=== PATIENT | female | born 1980 | race American Indian/Alaskan Native ===

== ENCOUNTER 2021-01-15 07:29 | Inpatient (IN) | payer SELFPAY ==
[2021-01-15] MEDS ORDERED: LORazepam 2 MG/ML VIAL IV ONE (08:43)
--- NOTE | 2021-01-15 08:48 | Emergency Department Report ---
ED Shortness of Breath HPI - General Chief Complaint: Dyspnea/Respdistress Stated Complaint: SOB, CHEST PAIN, EARS Time Seen by Provider: 01/15/21 08:35 Source: patient Mode of arrival: Ambulatory Limitations: No Limitations - History of Present Illness Initial Comments: 40-year-old female, history of anxiety, presents to ED with difficulty breathing. Patient states her symptoms started last night while she was smoking crack. She states she became sweaty, short of breath, felt like she is going to pass out. Patient also reports that she has had cough x1 week. Reports chest pain secondary to coughing so much. Patient states she has pain across the entire anterior chest. States it is worse with inspiration, feels like throbbing. Patient states she was tested for Covid last week and it was negative. Patient states she received the 1st dose of her Pfizer vaccine a couple of months ago. Patient never returned for her 2nd dose. She reports subjective fever and chills. O2 sats 85% on room air at triage. MD Complaint: shortness of breath -: Last night Severity: moderate Consistency: constant Improves With: nothing Worsens With: nothing Associated Symptoms: chest pain, fever, cough, diaphoresis Treatments Prior to Arrival: none - Related Data Home Oxygen Therapy: No Home Medications Medication Instructions Recorded Confirmed Last Taken No Known Home Medications [No 01/16/21 01/16/21 Unknown Reported Home Medications] Allergies Allergy/AdvReac Type Severity Reaction Status Date / Time No Known Allergies Allergy Verified 01/15/21 11:56 ED Review of Systems ROS: Stated complaint: SOB, CHEST PAIN, EARS Other details as noted in HPI Comment: All other systems reviewed and negative Constitutional: chills, fever Respiratory: cough, shortness of breath Cardiovascular: chest pain ED Past Medical Hx - Medications Home Medications: Home Medications Medication Instructions Recorded Confirmed Last Taken Type No Known Home Medications [No 01/16/21 01/16/21 Unknown History Reported Home Medications] ED Physical Exam - General Limitations: No Limitations General appearance: alert, obese - Head Head exam: Present: atraumatic, normocephalic - Eye Eye exam: Present: normal appearance, EOMI - ENT ENT exam: Present: mucous membranes moist - Neck Neck exam: Present: normal inspection - Respiratory Respiratory exam: Present: normal lung sounds bilaterally. Absent: respiratory distress - Cardiovascular Cardiovascular Exam: Present: normal rhythm, tachycardia - GI/Abdominal GI/Abdominal exam: Present: soft. Absent: distended, tenderness - Extremities Exam Extremities exam: Present: normal inspection. Absent: pedal edema, calf tenderness - Neurological Exam Neurological exam: Present: alert, oriented X3 - Psychiatric Psychiatric exam: Present: anxious - Skin Skin exam: Present: warm, dry, intact, normal color ED Course Vital Signs 01/15/21 01/15/21 01/15/21 07:51 11:19 11:31 Temperature 98.2 F Pulse Rate 125 H 118 H 115 H Respiratory 18 12 22 Rate Blood Pressure 128/83 Blood Pressure 125/65 [Right] O2 Sat by Pulse 85 93 97 Oximetry 01/15/21 01/15/21 01/15/21 11:45 12:01 12:15 Temperature Pulse Rate 114 H 112 H 109 H Respiratory 40 H 44 H 33 H Rate Blood Pressure 128/83 128/83 128/83 Blood Pressure [Right] O2 Sat by Pulse 95 94 96 Oximetry 01/15/21 01/15/21 01/15/21 13:15 13:31 13:45 Temperature Pulse Rate 114 H 106 H 106 H Respiratory 25 H 40 H 35 H Rate Blood Pressure 127/86 138/88 124/80 Blood Pressure [Right] O2 Sat by Pulse 96 99 99 Oximetry 01/15/21 01/15/21 01/15/21 14:01 14:15 14:31 Temperature Pulse Rate 105 H 102 H 100 H Respiratory 22 35 H 36 H Rate Blood Pressure 114/80 119/77 125/79 Blood Pressure [Right] O2 Sat by Pulse 98 98 98 Oximetry 01/15/21 01/15/21 01/15/21 14:46 15:01 15:15 Temperature Pulse Rate 100 H 99 H 93 H Respiratory 34 H 37 H 20 Rate Blood Pressure 125/79 141/89 Blood Pressure [Right] O2 Sat by Pulse 98 98 98 Oximetry 01/15/21 01/15/21 01/15/21 15:31 15:45 16:01 Temperature Pulse Rate 99 H 100 H 100 H Respiratory 25 H 21 29 H Rate Blood Pressure 141/89 141/89 141/89 Blood Pressure [Right] O2 Sat by Pulse 97 97 98 Oximetry 01/15/21 01/15/21 01/15/21 16:15 16:31 16:45 Temperature Pulse Rate 97 H 102 H 101 H Respiratory 17 20 23 Rate Blood Pressure 141/89 141/89 141/89 Blood Pressure [Right] O2 Sat by Pulse 97 98 97 Oximetry 01/15/21 01/15/21 01/15/21 17:01 17:15 17:31 Temperature Pulse Rate 103 H 100 H 100 H Respiratory 16 24 20 Rate Blood Pressure 141/89 141/89 141/89 Blood Pressure [Right] O2 Sat by Pulse 92 98 99 Oximetry 01/15/21 01/15/21 01/15/21 17:45 18:01 18:15 Temperature Pulse Rate 98 H 102 H 117 H Respiratory 21 19 32 H Rate Blood Pressure 141/89 141/89 141/89 Blood Pressure [Right] O2 Sat by Pulse 98 96 88 Oximetry 01/15/21 01/15/21 01/15/21 18:31 18:45 19:01 Temperature Pulse Rate 108 H 104 H Respiratory 17 21 Rate Blood Pressure 146/124 146/124 133/88 Blood Pressure [Right] O2 Sat by Pulse 82 L 85 99 Oximetry 01/15/21 01/15/21 01/15/21 19:15 19:31 19:45 Temperature Pulse Rate 102 H 99 H 103 H Respiratory 19 43 H 36 H Rate Blood Pressure 139/93 139/93 139/93 Blood Pressure [Right] O2 Sat by Pulse 89 98 95 Oximetry 01/15/21 01/15/21 01/15/21 20:01 20:15 20:31 Temperature Pulse Rate 99 H 99 H 102 H Respiratory 14 14 24 Rate Blood Pressure 139/93 139/93 139/93 Blood Pressure [Right] O2 Sat by Pulse 92 97 91 Oximetry 01/15/21 01/15/21 01/15/21 20:45 21:01 21:06 Temperature Pulse Rate 122 H 97 H Respiratory 16 27 H Rate Blood Pressure 139/93 139/93 Blood Pressure [Right] O2 Sat by Pulse 69 L 97 97 Oximetry 01/15/21 01/15/21 01/15/21 21:15 21:31 21:45 Temperature Pulse Rate 101 H 105 H 97 H Respiratory 26 H 37 H 25 H Rate Blood Pressure 139/93 145/89 146/82 Blood Pressure [Right] O2 Sat by Pulse 98 87 96 Oximetry 01/15/21 01/15/21 01/15/21 22:01 22:15 22:17 Temperature Pulse Rate 101 H 100 H 99 H Respiratory 22 46 H 24 Rate Blood Pressure 139/101 152/98 152/98 Blood Pressure [Right] O2 Sat by Pulse 95 95 98 Oximetry 01/15/21 22:23 Temperature Pulse Rate 99 H Respiratory 34 H Rate Blood Pressure 147/95 Blood Pressure [Right] O2 Sat by Pulse 97 Oximetry ED Medical Decision Making - Lab Data Result diagrams: 01/16/21 07:40 01/16/21 07:06 - EKG Data -: EKG Interpreted by Tn EKG shows normal: sinus rhythm, axis, intervals, QRS complexes, ST-T waves Rate: tachycardia (rate 113) - EKG Data Interpretation: no acute changes - Radiology Data Radiology results: report reviewed, image reviewed - Medical Decision Making 40-year-old female presents to ED with shortness of breath. O2 sats 85% on room air. Chest x-ray impression is pulmonary edema versus pneumonia. Patient has elevated WBCs of 19. She is afebrile. BNP is within normal limits. Patient currently on 6 L O2 via nasal cannula with O2 sats of 95%. Possible flash pulmonary edema due to cocaine use, so IV Lasix given. Possible Covid, so Covid PCR and markers sent. Blood cultures ordered, patient given Decadron, Rocephin, azithromycin. Patient admitted to hospitalist, Dr. Gambino. - Differential Diagnosis Pneumonia, COVID-19, pulmonary edema Critical Care Time: Yes Critical care time in (mins) excluding proc time.: 35 Critical care attestation.: If time is entered above; I have spent that time in minutes in the direct care of this critically ill patient, excluding procedure time. Critical Care Time: 35 min ED Disposition Clinical Impression: Suspected COVID-19 virus infection, Acute respiratory failure with hypoxia, Cocaine abuse, Pneumonia, Hypokalemia, Sepsis, Pulmonary edema, Amphetamine abuse Disposition: ADMITTED INPATIENT Is pt being admited?: Yes Condition: Stable Time of Disposition: 10:28
--- NOTE | 2021-01-15 09:12 | XRay Report ---
CHEST 1 VIEW INDICATION: SOB. COMPARISON: None FINDINGS: Support devices: None. Heart: Within normal limits. Lungs/Pleura: Moderate bilateral perihilar infiltrates are identified most consistent with central pu lmonary edema. Bilateral pneumonia could be considered. No pleural effusion or pneumothorax. Additional findings: None. IMPRESSION: Bilateral perihilar infiltrates as described. Signer Name: Srinivas Koroma Jr, MD Signed: 01/15/2021 9:07 AM Workstation Name: [id number]
[2021-01-15] MEDS ORDERED: AZITHROMYCIN 250 MG TAB PO ONE (09:35)
[2021-01-15] MEDS ORDERED: cefTRIAXone/NS 1 GM/50 ML 1 GM/50 ML BAG IV ONE (09:35)
[2021-01-15] MEDS ORDERED: FUROSEMIDE 40 MG/4 ML INJ IV ONE (09:35)
[2021-01-15] MEDS ORDERED: DEXAMETHASONE 4 MG TAB PO ONE (09:35)
[2021-01-15 09:47] LABS: Basophils % (Auto) 0.2 % (0.0-1.8); Hematocrit 41.8 % (30.3-42.9); Hemoglobin 13.6 gm/dl (10.1-14.3); Mean Corpuscular HGB Conc 33 % (30-34); Mean Corpuscular Volume 83 fl (79-97); Monocytes # (Auto) 0.9 K/mm3 (0.0-0.8); Monocytes % (Auto) 4.9 % (0.0-7.3); Platelet Count 315 K/mm3 (140-440); Red Blood Count 5.05 M/mm3 (3.65-5.03); Red Cell Distribution Width 17.1 % (13.2-15.2)
[2021-01-15 10:10] LABS: INR 1.03 (0.87-1.13)
[2021-01-15 10:11] LABS: Partial Thromboplastin Time 30.6 Sec. (24.2-36.6)
[2021-01-15 10:20] LABS: Alanine Aminotransferase 44 units/L (7-56); Albumin 3.8 g/dL (3.9-5); BUN/Creatinine Ratio 7; Blood Urea Nitrogen 6 mg/dL (7-17); Calcium 8.8 mg/dL (8.4-10.2); Hemolysis Index 9
[2021-01-15] MEDS ORDERED: POTASSIUM CHLORIDE ER 20 MEQ TAB PO ONE (10:31)
[2021-01-15 10:45] LABS: Bilirubin,Direct < 0.2 mg/dL (0-0.2)
[2021-01-15 10:58] LABS: Bilirubin,Urine NEG (Negative); Blood,Urine SM (Negative); Color,Urine Straw (Yellow); Protein,Urine <15 mg/dL mg/dL (Negative); Urobilinogen,Urine < 2.0 mg/dL (<2.0); WBC,Urine < 1.0 /HPF (0.0-6.0)
[2021-01-15 11:09] LABS: Benzodiazepines Screen,Urine Negative; Methadone Screen,Urine Negative; Opiate Screen,Urine Negative
--- NOTE | 2021-01-15 11:23 | History and Physical Report ---
History of Present Illness Date of examination: 01/15/21 Date of admission: 01/15/2021 Chief complaint: Shortness of breath History of present illness: HPI: 33-year-old female past medical history of anxiety and cocaine use presenting to our facility with complaint of shortness of breath. Patient states that she has had a cough for approximately 1 week with associated pleuritic chest pain every time she coughs. Cough is associated with blood-tinged sputum. She was tested at the time for Covid and was found to be negative. She has received her first dose of the [employer] Covid vaccine. She states that her symptoms worsened after yesterday she was smoking crack cocaine. She states that immediately after she became diaphoretic and short of breath. Remainder of ROS negative except for stated above ED Course: Azithromycin IV, ceftriaxone IV, Decadron IV, Lasix IV, K. Dur p.o. PMHx: Anxiety Crack cocaine abuse PSHx: x3 FHx: Reviewed noncontributory SHx: Tobacco use-1 pack/day ETOH Use-admits Recreational Drug Use-crack cocaine PCP-denies having a primary Family, has Medications and Allergies Allergies Allergy/AdvReac Type Severity Reaction Status Date / Time No Known Allergies Allergy Verified 01/15/21 11:56 Review of Systems All systems: negative Constitutional: sweats Respiratory: cough, cough with sputum, shortness of breath Exam - Physical Exam Narrative exam: Physical Exam: Constitutional: Alert, cooperative. No acute distress, elevated BMI, drowsy Head, Ears, Nose: Normocephalic, atraumatic. External ears, nose normal Eyes: Conjunctivae/corneas clear. No icterus. No ptosis. Neck: Supple, no meningeal signs Oral: dentition fair, no thrush Cardiovascular: S1, S2 normal. Respiratory: Good air entry, clear to auscultation bilaterally GI: Soft, non-tender; bowel sounds normal. No peritoneal signs. Musculoskeletal: No pedal edema, no cyanosis. Skin: No rash or abscess, see nursing assessment for full skin exam Hem/Lymphatic: No palpable cervical or supraclavicular nodes. No lymphangitis Psych: Mood ok. Affect normal Neurological: Awake, alert, oriented. No gross abnormality - Constitutional Vitals: Temp Pulse Resp BP Pulse Ox 98.2 F 125 H 18 125/65 85 01/15/21 07:51 01/15/21 07:51 01/15/21 07:51 01/15/21 07:51 01/15/21 07:51 HEART Score - HEART Score Troponin: Troponin T < 0.010 ng/mL (0.00-0.029) 01/15/21 08:57 Results - Labs CBC & Chem 7: 01/15/21 08:57 01/15/21 15:31 Labs: Laboratory Last Values WBC 19.3 K/mm3 (4.5-11.0) H 01/15/21 08:57 RBC 5.05 M/mm3 (3.65-5.03) H 01/15/21 08:57 Hgb 13.6 gm/dl (10.1-14.3) 01/15/21 08:57 Hct 41.8 % (30.3-42.9) 01/15/21 08:57 MCV 83 fl (79-97) 01/15/21 08:57 MCH 27 pg (28-32) L 01/15/21 08:57 MCHC 33 % (30-34) 01/15/21 08:57 RDW 17.1 % (13.2-15.2) H 01/15/21 08:57 Plt Count 315 K/mm3 (140-440) 01/15/21 08:57 Lymph % (Auto) 5.0 % (13.4-35.0) L 01/15/21 08:57 [place] % (Auto) 4.9 % (0.0-7.3) 01/15/21 08:57 Eos % (Auto) 0.0 % (0.0-4.3) 01/15/21 08:57 Baso % (Auto) 0.2 % (0.0-1.8) 01/15/21 08:57 Lymph # (Auto) 1.0 K/mm3 (1.2-5.4) L 01/15/21 08:57 [place] # (Auto) 0.9 K/mm3 (0.0-0.8) H 01/15/21 08:57 Eos # (Auto) 0.0 K/mm3 (0.0-0.4) 01/15/21 08:57 Baso # (Auto) 0.0 K/mm3 (0.0-0.1) 01/15/21 08:57 Seg Neutrophils % 89.9 % (40.0-70.0) H 01/15/21 08:57 Seg Neutrophils # 17.4 K/mm3 (1.8-7.7) H 01/15/21 08:57 PT 14.0 Sec. (12.2-14.9) 01/15/21 08:57 INR 1.03 (0.87-1.13) 01/15/21 08:57 APTT 30.6 Sec. (24.2-36.6) 01/15/21 08:57 D-Dimer 1434.01 ng/mlDDU (0-234) H 01/15/21 08:57 Sodium 132 mmol/L (137-145) L 01/15/21 08:57 Potassium 3.0 mmol/L (3.6-5.0) L 01/15/21 08:57 Chloride 95.0 mmol/L (98-107) L 01/15/21 08:57 Carbon Dioxide 24 mmol/L (22-30) 01/15/21 08:57 Anion Gap 16 mmol/L 01/15/21 08:57 BUN 6 mg/dL (7-17) L 01/15/21 08:57 Creatinine 0.9 mg/dL (0.6-1.2) 01/15/21 08:57 Estimated GFR > 60 ml/min 01/15/21 08:57 BUN/Creatinine Ratio 7 % 01/15/21 08:57 Glucose 135 mg/dL (65-100) H 01/15/21 08:57 Lactic Acid 2.00 mmol/L (0.7-2.0) 01/15/21 10:12 Calcium 8.8 mg/dL (8.4-10.2) 01/15/21 08:57 Ferritin 167.8 ng/mL (10.0-200.0) 01/15/21 10:12 Total Bilirubin 0.50 mg/dL (0.1-1.2) 01/15/21 08:57 Direct Bilirubin < 0.2 mg/dL (0-0.2) 01/15/21 08:57 Indirect Bilirubin 0.3 mg/dL 01/15/21 08:57 AST 57 units/L (5-40) H 01/15/21 08:57 ALT 44 units/L (7-56) 01/15/21 08:57 Alkaline Phosphatase 89 units/L (35-129) 01/15/21 08:57 Troponin T < 0.010 ng/mL (0.00-0.029) 01/15/21 08:57 NT-Pro-B Natriuret Pep 52.39 pg/mL (0-450) 01/15/21 08:57 Total Protein 8.0 g/dL (6.3-8.2) 01/15/21 08:57 Albumin 3.8 g/dL (3.9-5) L 01/15/21 08:57 Albumin/Globulin Ratio 0.9 % 01/15/21 08:57 HCG, Qual Negative (Negative) 01/15/21 08:57 Urine Color Straw (Yellow) 01/15/21 Unknown Urine Turbidity Clear (Clear) 01/15/21 Unknown Urine pH 6.0 (5.0-7.0) 01/15/21 Unknown Ur Specific [place] 1.004 (1.003-1.030) 01/15/21 Unknown Urine Protein <15 mg/dl mg/dL (Negative) 01/15/21 Unknown Urine Glucose (UA) Neg mg/dL (Negative) 01/15/21 Unknown Urine Ketones Neg mg/dL (Negative) 01/15/21 Unknown Urine Blood Sm (Negative) 01/15/21 Unknown Urine Nitrite Neg (Negative) 01/15/21 Unknown Urine Bilirubin Neg (Negative) 01/15/21 Unknown Urine Urobilinogen < 2.0 mg/dL (<2.0) 01/15/21 Unknown Ur Leukocyte Esterase Neg (Negative) 01/15/21 Unknown Urine WBC (Auto) < 1.0 /HPF (0.0-6.0) 01/15/21 Unknown Urine RBC (Auto) 2.0 /HPF (0.0-6.0) 01/15/21 Unknown U Epithel Cells (Auto) 2.0 /HPF (0-13.0) 01/15/21 Unknown Urine Opiates Screen Negative 01/15/21 Unknown Urine Methadone Screen Negative 01/15/21 Unknown Ur Barbiturates Screen Negative 01/15/21 Unknown Ur Phencyclidine Scrn Negative 01/15/21 Unknown U Benzodiazepines Scrn Negative 01/15/21 Unknown Plasma/Serum Alcohol < 0.01 % (0-0.07) 01/15/21 08:57 Assessment and Plan Assessment and plan: 1. acute hypoxic respiratory failure Etiology high suspicion for Covid pneumonia. "Crack lung" also on differential -Currently on 3 L nasal cannula, wean as tolerated As needed albuterol inhaler -Chest x-ray demonstrates findings consistent with pulmonary edema CTA chest: Negative for PE, multifocal patchy groundglass opacities Pulmonology consulted 2. SARS-CoV-2 pneumonia Covid 19 RT-PCR positive Empiric antibiotic with azithromycin V/Rocephin IV, de-escalate if procalcitonin not elevated Decadron 10 mg IV daily Remdesivir x5 days ordered Lovenox 40 mg subcu daily Infectious disease consulted 3. Sepsis Leukocytosis, tachycardia, tachypnea Management as above Blood culture x2 ordered Sputum culture ordered 4. Transaminitis Mild elevation AST Monitor on hepatic panel 5. Hyponatremia Noted to be low Monitor on BMP 6. Hypokalemia Noted to be low on admission, replaced with K-Dur Follow-up on a.m. BMP 7. Drug abuse -Has been to drug rehab before Admitted to correct cocaine use just prior to admission and in the days leading up to admission UDS positive for amphetamines, THC, cocaine -Counseled on recreational drug abstinence and the detrimental effect of recreational drug use on health. 8. Nicotine abuse 1 pack/day smoking history since age 19 Counseled on smoking cessation, 10+ minutes - Patient Problems (1) Hyponatremia Current Visit: Yes Status: Acute (2) Transaminitis Current Visit: Yes Status: Acute (3) Acute respiratory failure with hypoxia Current Visit: Yes Status: Acute (4) Cocaine abuse Current Visit: Yes Status: Acute (5) Hypokalemia Current Visit: Yes Status: Acute (6) Pneumonia Current Visit: Yes Status: Acute (7) Sepsis Current Visit: Yes Status: Acute (8) Suspected COVID-19 virus infection Current Visit: Yes Status: Acute
[2021-01-15] MEDS ORDERED: cefTRIAXone/NS 1 GM/50 ML 1 GM/50 ML BAG IV SCH (12:00)
[2021-01-15] MEDS ORDERED: AZITHROMYCIN/NS 500 MG/250 ML 500 MG/250 ML BAG IV SCH (12:00)
[2021-01-15 12:12] LABS: C-Reactive Protein 14.4 mg/dL (0.00-1.30)
[2021-01-15 12:14] LABS: Amphetamine Screen,Urine Positive; Cannabinoid Screen,Urine Positive; Cocaine Screen,Urine Positive
[2021-01-15] MEDS: ACETAMINOPHEN 325 MG TAB PO PRN (12:35)
[2021-01-15] MEDS: ONDANSETRON 4 MG/2 ML INJ IV PRN (12:35)
--- NOTE | 2021-01-15 13:21 | Cat Scan Report ---
CTA CHEST WITH IV CONTRAST INDICATION: pneumonitis 100 ml omni 350 . TECHNIQUE: Axial CT images were obtained through the chest after injection of IV contrast. 3 plane MIP reconstru ctions were produced. All CT scans at this location are performed using CT dose reduction for ALARA b y means of automated exposure control. COMPARISON: None available. FINDINGS: Pulmonary Arteries: No pulmonary emboli. Thoracic Aorta: No acute abnormality. Heart: Normal. Lungs: There are extensive confluent predominantly perihilar groundglass opacities bilaterally. Pleura: No pleural effusion. No pneumothorax. Lymph Nodes: No significant adenopathy. Additional Findings: None. Upper Abdomen: No acute findings. Skeletal Structures: No significant osseous abnormality. IMPRESSION: 1. No CT evidence for pulmonary embolism. 2. Extensive confluent predominantly perihilar groundglass opacities consistent with bilateral pneumo javon. Given the perihilar predominance, cardiogenic/noncardiogenic pulmonary edema could have this avila earance. Signer Name: Jerome Aleman MD Signed: 01/15/2021 1:16 PM Workstation Name: [id number]
[2021-01-15] MEDS: ENOXAPARIN 40 MG/0.4 ML INJ SUB-Q SCH (13:28)
[2021-01-15] MEDS: oxyCODONE /ACETAMINOPHEN 5-325MG TAB PO PRN ×2 (13:28→20:13)
[2021-01-15] MEDS ORDERED: REMDESIVIR 200 MG in SODIUM CHLORIDE 0.9% 250ML 250 ML IV ONE (16:00)
[2021-01-15 16:08] LABS: Alanine Aminotransferase 42 units/L (7-56); Albumin 3.7 g/dL (3.9-5); Blood Urea Nitrogen 7 mg/dL (7-17); Calcium 8.9 mg/dL (8.4-10.2); Hemolysis Index 8
[2021-01-15 16:35] LABS: BUN/Creatinine Ratio 10
[2021-01-15] MEDS: SODIUM CHLORIDE 0.9% 50 ML IVPB IV SCH (23:09)
[2021-01-16] MEDS: oxyCODONE /ACETAMINOPHEN 5-325MG TAB PO PRN (07:10)
--- NOTE | 2021-01-16 07:46 | Consultation ---
History of Present Illness - Reason for Consult Consult date: 01/16/21 COVID - History of Present Illness 30-year-old female with history of left-sided pain, polysubstance abuse, anxiety, admitted on 01/15/2021 secondary to 1-week history of generalized malaise, cough, pleuritic chest pain and shortness of breath. Patient reports cough has been with sputum. Symptoms worsen the day before admission after she smoke cocaine. Patient was tested for COVID-19 as an outpatient and was negative. Patient received the first dose of COVID-19 Pfizer recently. Patient admits she uses cocaine, alcohol and tobacco. On arrival, temperature 98.2, HR 125, RR 18, O2 sat 85%, BP 125/65. Initial WBC 19.3. D-dimer 1434. CRP 14. Ferritin 167. Urinalysis negative. AST 48. Procalcitonin 1.6. Urine drug screen positive for amphetamines, cocaine and marijuana. CTA chest shows extensive confluent perihilar groundglass opacities. Blood culture no growth today. Review of Systems: reviewed ED and H&P notes. Review of system deferred to minimize COVID-19 transmission. Medications and Allergies Allergies Allergy/AdvReac Type Severity Reaction Status Date / Time No Known Allergies Allergy Verified 01/15/21 11:56 Active Meds: Active Medications Acetaminophen (Acetaminophen 325 Mg Tab) 650 mg PO Q4H PRN PRN Reason: Pain MILD(1-3)/Fever >100.5/LEUNG Last Admin: 01/15/21 12:35 Dose: 650 mg Documented by: Dexamethasone (Dexamethasone 20 Mg/5 Ml Vial) 10 mg IV DAILY [facility] Stop: 01/26/21 09:59 Enoxaparin Sodium (Enoxaparin 40 Mg/0.4 Ml Inj) 40 mg SUB-Q QDAY RODNEY Last Admin: 01/15/21 13:28 Dose: 40 mg Documented by: Ceftriaxone Sodium (Rocephin/Ns 1 Gm/50 Ml) 1 gm in 50 mls @ 100 mls/hr IV Q24H RODNEY; Protocol Last Admin: 01/15/21 12:24 Dose: Not Given Documented by: Azithromycin (Zithromax/Ns) 500 mg in 250 mls @ 250 mls/hr IV 1000 RODNEY REMDESIVIR 100 mg/ Sodium (Chloride) 250 mls @ 500 mls/hr IV Q24HR@2100 [facility] Stop: 01/19/21 21:29 Ondansetron HCl (Ondansetron 4 Mg/2 Ml Inj) 4 mg IV Q8H PRN PRN Reason: Nausea And Vomiting Last Admin: 01/15/21 12:35 Dose: 4 mg Documented by: Potassium Chloride (Potassium Chloride Er 20 Meq Tab) 40 meq PO QDAY [facility] Sodium Chloride (Sodium Chloride 0.9% 10 Ml Flush Syringe) 10 ml IV BID [facility] Last Admin: 01/15/21 23:09 Dose: 10 ml Documented by: Sodium Chloride (Sodium Chloride 0.9% 10 Ml Flush Syringe) 10 ml IV PRN PRN PRN Reason: LINE FLUSH Sodium Chloride (Sodium Chloride 0.9% 50 Ml Ivpb) 50 ml IV Q24HR@2100 [facility] Stop: 01/19/21 21:01 Last Admin: 01/15/21 23:09 Dose: Not Given Documented by: Physical Examination - Physical Exam Narrative exam: Physical exam deferred to minimize COVID-19 transmission during pandemic. - Constitutional Vitals: Vital Signs Temp Pulse Resp BP Pulse Ox 98.2 F 98 H 41 H 142/98 97 01/15/21 07:51 01/15/21 22:41 01/15/21 22:41 01/15/21 22:41 01/15/21 22:41 Temperature -Last 24 Hours Temperature 98.2 F Results - Labs CBC & Chem 7: 01/15/21 08:57 01/15/21 15:31 Labs: Abnormal lab results 01/15/21 01/15/21 01/15/21 Range/Units 08:50 08:57 08:57 WBC 19.3 H (4.5-11.0) K/mm3 RBC 5.05 H (3.65-5.03) M/mm3 MCH 27 L (28-32) pg RDW 17.1 H (13.2-15.2) % Lymph % (Auto) 5.0 L (13.4-35.0) % Lymph # (Auto) 1.0 L (1.2-5.4) K/mm3 [place] # (Auto) 0.9 H (0.0-0.8) K/mm3 Seg Neutrophils % 89.9 H (40.0-70.0) % Seg Neutrophils # 17.4 H (1.8-7.7) K/mm3 D-Dimer 1434.01 H (0-234) ng/mlDDU Sodium (137-145) mmol/L Potassium (3.6-5.0) mmol/L Chloride (98-107) mmol/L BUN (7-17) mg/dL Glucose (65-100) mg/dL AST (5-40) units/L Lactate Dehydrogenase (91-180) units/L C-Reactive Protein (0.00-1.30) mg/dL Total Protein (6.3-8.2) g/dL Albumin (3.9-5) g/dL Coronavirus (PCR) Positive A (Negative) 01/15/21 01/15/21 01/15/21 Range/Units 08:57 08:57 15:31 WBC (4.5-11.0) K/mm3 RBC (3.65-5.03) M/mm3 MCH (28-32) pg RDW (13.2-15.2) % Lymph % (Auto) (13.4-35.0) % Lymph # (Auto) (1.2-5.4) K/mm3 [place] # (Auto) (0.0-0.8) K/mm3 Seg Neutrophils % (40.0-70.0) % Seg Neutrophils # (1.8-7.7) K/mm3 D-Dimer (0-234) ng/mlDDU Sodium 132 L 132 L (137-145) mmol/L Potassium 3.0 L (3.6-5.0) mmol/L Chloride 95.0 L 96.0 L (98-107) mmol/L BUN 6 L (7-17) mg/dL Glucose 135 H 144 H (65-100) mg/dL AST 57 H 48 H (5-40) units/L Lactate Dehydrogenase 767 H (91-180) units/L C-Reactive Protein 14.40 H (0.00-1.30) mg/dL Total Protein 8.4 H (6.3-8.2) g/dL Albumin 3.8 L 3.7 L (3.9-5) g/dL Coronavirus (PCR) (Negative) Assessment and Plan Cultures: Blood culture no growth today SARS CoV2 PCR positive Assessment: 30-year-old female with history of left-sided pain, polysubstance abuse, anxiety, admitted on 01/15/2021 secondary to a 1-week history of generalized malaise, cough, pleuritic chest pain and shortness of breath: #Sepsis: Present on admission, hypoxia, leukocytosis; likely secondary to bilateral pneumonia. Urinalysis negative. #Severe COVID pneumonia +/- bacterial pneumonia: CTA chest shows extensive confluent perihilar groundglass opacities. Infllammatory markers elevated. D- dimer 1434. CRP 14. Ferritin 167. Elevated procalcitonin 1.6. #Acute hypoxemic respiratory failure: sats down to 80s, Patient currently on 6 L nasal cannula. #Elevated LFTs: from COVID #Cocaine, meth, marijuana use Recommendations: -Continue dexamethasone IV/PO daily for 10 days -Continue remdesivir for 5 days (CrCl>30 mg/mL) -Continue ceftriaxone for 5 days and azithromycin for 3 days, procalcitonin >0.25 ng/mL -Monitor inflammatory markers - ferritin, Ddimer, CRP, LDH -Monitor liver function test on Remdesivir -Continue anticoagulation per System Protocol -Prone positioning as possible -Follow-up blood cultures All laboratory, cultures and imaging were reviewed. Will follow Kimmie Hector MD Infectious Diseases Business Support Professional [facility] M [phone] O [phone]
--- NOTE | 2021-01-16 08:18 | Event Note ---
Date: 01/16/21 Consult to follow COVID positive acute respiratory failure in a patient who smokes crack. Elevated BP. Agree with diuresis. IV/Oral steroids. Needs to Prone as much as possible and remdesivir. Suggest PRN frequent doses of ativan now as she already has baseline anxiety and was positive for amphetamines as well as cocaine. Worsening anxitey will worsen respiratory failure. Guarded prognosis.
[2021-01-16 08:23] LABS: Hematocrit 36.6 % (30.3-42.9); Hemoglobin 11.9 gm/dl (10.1-14.3); Mean Corpuscular HGB Conc 33 % (30-34); Mean Corpuscular Volume 84 fl (79-97); Platelet Count 325 K/mm3 (140-440); Red Blood Count 4.38 M/mm3 (3.65-5.03); Red Cell Distribution Width 17.3 % (13.2-15.2)
[2021-01-16 08:29] LABS: Alanine Aminotransferase 34 units/L (7-56); Albumin 3.4 g/dL (3.9-5); BUN/Creatinine Ratio 13; Blood Urea Nitrogen 10 mg/dL (7-17); Calcium 8.6 mg/dL (8.4-10.2); Hemolysis Index 15
--- NOTE | 2021-01-16 08:53 | Progress Note ---
Assessment and Plan Assessment and plan: HPI: 33-year-old female past medical history of anxiety and cocaine use presenting to our facility with complaint of shortness of breath. Patient states that she has had a cough for approximately 1 week with associated pleuritic chest pain every time she coughs. Cough is associated with blood-tinged sputum. She was tested at the time for Covid and was found to be negative. She has received her first dose of the Pfizer Covid vaccine, but did not obtain second dose. She states that her symptoms worsened after yesterday she was smoking crack cocaine. She states that immediately after she became diaphoretic and short of breath. Hospital course to date 01/16/2021: Continues to require supplemental oxygen. Currently on 6 L/min. States that overall her symptoms have slightly improved. Subspecialist recommendations noted. We will continue supportive management, add diuretics, and add Xanax as needed for anxiety. Assessment and plan 1. acute hypoxic respiratory failure Etiology high suspicion for Covid pneumonia. "Crack lung" also on differential -Currently on 3 L nasal cannula, wean as tolerated As needed albuterol inhaler, budesonide -Chest x-ray demonstrates findings consistent with pulmonary edema CTA chest: Negative for PE, multifocal patchy groundglass opacities Pulmonology consulted 2. SARS-CoV-2 pneumonia Covid 19 RT-PCR positive Empiric antibiotic with azithromycin V/Rocephin IV, de-escalate if procalcitonin not elevated Decadron 10 mg IV daily Remdesivir x5 days ordered Lovenox 40 mg subcu daily Infectious disease consulted 3. Sepsis Leukocytosis, tachycardia, tachypnea Management as above Blood culture x2 ordered Sputum culture ordered 4. Transaminitis Mild elevation AST Monitor on hepatic panel 5. Hyponatremia Noted to be low Monitor on BMP 6. Hypokalemia Noted to be low on admission, replaced with K-Dur Follow-up on a.m. BMP 7. Drug abuse -Has been to drug rehab before Admitted to correct cocaine use just prior to admission and in the days leading up to admission UDS positive for amphetamines, THC, cocaine -Counseled on recreational drug abstinence and the detrimental effect of recreational drug use on health. 8. Nicotine abuse 1 pack/day smoking history since age 19 Counseled on smoking cessation, 10+ minutes Note: Patient has expressed that she does not want her medical information shared with any family members besides - Patient Problems (1) Hyponatremia Current Visit: Yes Status: Acute (2) Transaminitis Current Visit: Yes Status: Acute (3) Acute respiratory failure with hypoxia Current Visit: Yes Status: Acute (4) Cocaine abuse Current Visit: Yes Status: Acute (5) Hypokalemia Current Visit: Yes Status: Acute (6) Pneumonia Current Visit: Yes Status: Acute (7) Sepsis Current Visit: Yes Status: Acute (8) Suspected COVID-19 virus infection Current Visit: Yes Status: Acute History Interval history: No overnight events or acute complaints. All questions and concerns answered to the patient satisfaction Hospitalist Physical - Physical exam Narrative exam: Physical Exam: Constitutional: Alert, cooperative. No acute distress, elevated BMI, drowsy Head, Ears, Nose: Normocephalic, atraumatic. External ears, nose normal Eyes: Conjunctivae/corneas clear. No icterus. No ptosis. Neck: Supple, no meningeal signs Oral: dentition fair, no thrush Cardiovascular: S1, S2 normal. Respiratory: Good air entry, clear to auscultation bilaterally GI: Soft, non-tender; bowel sounds normal. No peritoneal signs. Musculoskeletal: No pedal edema, no cyanosis. Skin: No rash or abscess, see nursing assessment for full skin exam Hem/Lymphatic: No palpable cervical or supraclavicular nodes. No lymphangitis Psych: Mood ok. Affect normal Neurological: Awake, alert, oriented. No gross abnormality - Constitutional Vitals: Temp Pulse Resp BP Pulse Ox 98.2 F 98 H 41 H 142/98 97 01/15/21 07:51 01/15/21 22:41 01/15/21 22:41 01/15/21 22:41 01/15/21 22:41 HEART Score - HEART Score Troponin: Troponin T < 0.010 ng/mL (0.00-0.029) 01/15/21 08:57 Results - Labs CBC & Chem 7: 01/16/21 07:40 01/16/21 07:06 Labs: Laboratory Last Values WBC 20.6 K/mm3 (4.5-11.0) H 01/16/21 07:40 RBC 4.38 M/mm3 (3.65-5.03) 01/16/21 07:40 Hgb 11.9 gm/dl (10.1-14.3) 01/16/21 07:40 Hct 36.6 % (30.3-42.9) 01/16/21 07:40 MCV 84 fl (79-97) 01/16/21 07:40 MCH 27 pg (28-32) L 01/16/21 07:40 MCHC 33 % (30-34) 01/16/21 07:40 RDW 17.3 % (13.2-15.2) H 01/16/21 07:40 Plt Count 325 K/mm3 (140-440) 01/16/21 07:40 Lymph % (Auto) 5.0 % (13.4-35.0) L 01/15/21 08:57 [place] % (Auto) 4.9 % (0.0-7.3) 01/15/21 08:57 Eos % (Auto) 0.0 % (0.0-4.3) 01/15/21 08:57 Baso % (Auto) 0.2 % (0.0-1.8) 01/15/21 08:57 Lymph # (Auto) 1.0 K/mm3 (1.2-5.4) L 01/15/21 08:57 [place] # (Auto) 0.9 K/mm3 (0.0-0.8) H 01/15/21 08:57 Eos # (Auto) 0.0 K/mm3 (0.0-0.4) 01/15/21 08:57 Baso # (Auto) 0.0 K/mm3 (0.0-0.1) 01/15/21 08:57 Seg Neutrophils % 89.9 % (40.0-70.0) H 01/15/21 08:57 Seg Neutrophils # 17.4 K/mm3 (1.8-7.7) H 01/15/21 08:57 PT 14.0 Sec. (12.2-14.9) 01/15/21 08:57 INR 1.03 (0.87-1.13) 01/15/21 08:57 APTT 30.6 Sec. (24.2-36.6) 01/15/21 08:57 D-Dimer 1434.01 ng/mlDDU (0-234) H 01/15/21 08:57 Sodium 134 mmol/L (137-145) L 01/16/21 07:06 Potassium 3.2 mmol/L (3.6-5.0) L 01/16/21 07:06 Chloride 97.0 mmol/L (98-107) L 01/16/21 07:06 Carbon Dioxide 22 mmol/L (22-30) 01/16/21 07:06 Anion Gap 18 mmol/L 01/16/21 07:06 BUN 10 mg/dL (7-17) 01/16/21 07:06 Creatinine 0.8 mg/dL (0.6-1.2) 01/16/21 07:06 Estimated GFR > 60 ml/min 01/16/21 07:06 BUN/Creatinine Ratio 13 % 01/16/21 07:06 Glucose 139 mg/dL (65-100) H 01/16/21 07:06 Lactic Acid 2.00 mmol/L (0.7-2.0) 01/15/21 10:12 Calcium 8.6 mg/dL (8.4-10.2) 01/16/21 07:06 Ferritin 167.8 ng/mL (10.0-200.0) 01/15/21 10:12 Total Bilirubin 0.20 mg/dL (0.1-1.2) 01/16/21 07:06 Direct Bilirubin < 0.2 mg/dL (0-0.2) 01/15/21 08:57 Indirect Bilirubin 0.3 mg/dL 01/15/21 08:57 AST 34 units/L (5-40) 01/16/21 07:06 ALT 34 units/L (7-56) 01/16/21 07:06 Alkaline Phosphatase 99 units/L (35-129) 01/16/21 07:06 Lactate Dehydrogenase 767 units/L (91-180) H 01/15/21 08:57 Troponin T < 0.010 ng/mL (0.00-0.029) 01/15/21 08:57 C-Reactive Protein 14.40 mg/dL (0.00-1.30) H 01/15/21 08:57 NT-Pro-B Natriuret Pep 52.39 pg/mL (0-450) 01/15/21 08:57 Total Protein 7.8 g/dL (6.3-8.2) 01/16/21 07:06 Albumin 3.4 g/dL (3.9-5) L 01/16/21 07:06 Albumin/Globulin Ratio 0.8 % 01/16/21 07:06 Procalcitonin 1.67 ng/mL (<0.15) 01/15/21 10:12 HCG, Qual Negative (Negative) 01/15/21 08:57 Urine Color Straw (Yellow) 01/15/21 Unknown Urine Turbidity Clear (Clear) 01/15/21 Unknown Urine pH 6.0 (5.0-7.0) 01/15/21 Unknown Ur Specific [place] 1.004 (1.003-1.030) 01/15/21 Unknown Urine Protein <15 mg/dl mg/dL (Negative) 01/15/21 Unknown Urine Glucose (UA) Neg mg/dL (Negative) 01/15/21 Unknown Urine Ketones Neg mg/dL (Negative) 01/15/21 Unknown Urine Blood Sm (Negative) 01/15/21 Unknown Urine Nitrite Neg (Negative) 01/15/21 Unknown Urine Bilirubin Neg (Negative) 01/15/21 Unknown Urine Urobilinogen < 2.0 mg/dL (<2.0) 01/15/21 Unknown Ur Leukocyte Esterase Neg (Negative) 01/15/21 Unknown Urine WBC (Auto) < 1.0 /HPF (0.0-6.0) 01/15/21 Unknown Urine RBC (Auto) 2.0 /HPF (0.0-6.0) 01/15/21 Unknown U Epithel Cells (Auto) 2.0 /HPF (0-13.0) 01/15/21 Unknown Urine Opiates Screen Negative 01/15/21 Unknown Urine Methadone Screen Negative 01/15/21 Unknown Ur Barbiturates Screen Negative 01/15/21 Unknown Ur Phencyclidine Scrn Negative 01/15/21 Unknown Ur Amphetamines Screen Positive 01/15/21 Unknown U Benzodiazepines Scrn Negative 01/15/21 Unknown Urine Cocaine Screen Positive 01/15/21 Unknown U Marijuana (THC) Screen Positive 01/15/21 Unknown Drugs of Abuse Note Disclamer 01/15/21 Unknown Plasma/Serum Alcohol < 0.01 % (0-0.07) 01/15/21 08:57 Coronavirus (PCR) Positive (Negative) A 01/15/21 08:50 Microbiology: Microbiology 01/15/21 10:12 Peripheral/Venous Blood Culture - Preliminary Culture in Progress 01/15/21 10:12 Peripheral/Venous Blood Culture - Preliminary Culture in Progress Cleary/IV: Voiding Method Toilet Active Medications - Current Medications Current Medications: Generic Name Dose Route Start Last Admin Trade Name Freq PRN Reason Stop Dose Admin Acetaminophen 650 mg 01/15/21 11:42 01/15/21 12:35 Acetaminophen 325 Mg Tab PO 650 mg Q4H PRN Administration Pain MILD(1-3)/Fever >100.5/LEUNG Dexamethasone 10 mg 01/16/21 10:00 Dexamethasone 20 Mg/5 Ml Vial IV 01/26/21 09:59 DAILY RODNEY Enoxaparin Sodium 40 mg 01/15/21 12:00 01/15/21 13:28 Enoxaparin 40 Mg/0.4 Ml Inj SUB-Q 40 mg QDAY RODNEY Administration Furosemide 40 mg 01/16/21 08:55 Furosemide 40 Mg/4 Ml Inj IV 01/16/21 18:01 0600,1800 [facility] Azithromycin 500 mg in 250 mls @ 250 mls/hr 01/16/21 10:00 Zithromax/Ns IV 01/17/21 11:59 Q24HR RODNEY REMDESIVIR 100 mg/ Sodium 250 mls @ 500 mls/hr 01/16/21 21:00 Chloride IV 01/19/21 21:29 Q24HR@2100 RODNEY Ceftriaxone Sodium 2 gm in 100 mls @ 200 mls/hr 01/16/21 10:00 Rocephin/Ns 2 Gm/100 Ml IV 01/19/21 10:29 Q24HR RODNEY Ondansetron HCl 4 mg 01/15/21 11:42 01/15/21 12:35 Ondansetron 4 Mg/2 Ml Inj IV 4 mg Q8H PRN Administration Nausea And Vomiting Potassium Chloride 40 meq 01/16/21 10:00 Potassium Chloride Er 20 Meq Tab PO QDAY RODNEY Sodium Chloride 10 ml 01/15/21 22:00 01/15/21 23:09 Sodium Chloride 0.9% 10 Ml Flush Syringe IV 10 ml BID RODNEY Administration Sodium Chloride 10 ml 01/15/21 11:42 Sodium Chloride 0.9% 10 Ml Flush Syringe IV PRN PRN LINE FLUSH Sodium Chloride 50 ml 01/15/21 21:00 01/15/21 23:09 Sodium Chloride 0.9% 50 Ml Ivpb IV 01/19/21 21:01 Not Given Q24HR@2100 RODNEY
--- NOTE | 2021-01-16 10:03 | Electrocardiograph Report ---
[facility], [place] Test Date: 2021-01-15 Test Time: 08:27:22 Pat Name: FAROOQ JAIME Department: Room: A351 1 Gender: F Line Maintainer: : [id number] Requested By: CHI SEARS Order Number: [id number] Reading MD: Ean Matias Measurements Intervals [place] Rate: 113 P: 52 [place]: 138 QRS: 13 QRSD: 97 T: 33 QT: 341 QTc: 468 Interpretive Statements Sinus tachycardia Atrial premature complex Probable left atrial enlargement No previous ECG available for comparison Electronically Signed On 01-16-2021 10:03:07 EDT by Ean Matias
[2021-01-16] MEDS: cefTRIAXone/NS 2 GM/100 ML 2 GM/100 ML BAG IV SCH (10:06)
[2021-01-16] MEDS: AZITHROMYCIN/NS 500 MG/250 ML 500 MG/250 ML BAG IV SCH (10:06)
[2021-01-16] MEDS: ENOXAPARIN 40 MG/0.4 ML INJ SUB-Q SCH (10:07)
[2021-01-16] MEDS: POTASSIUM CHLORIDE ER 20 MEQ TAB PO SCH (10:07)
[2021-01-16] MEDS: FUROSEMIDE 40 MG/4 ML INJ IV SCH ×2 (10:07→19:04)
[2021-01-16 10:44] LABS: Band Neutrophils # (Manual) 0.6 K/mm3; Large Platelets 2+; Platelet Estimate Consistent w Auto; Total Cells Counted 100
[2021-01-16] MEDS: dexAMETHasone 20 MG/5 ML VIAL IV SCH (11:56)
[2021-01-16] MEDS: ALPRAZolam 0.5 MG TAB PO PRN (15:30)
[2021-01-16] MEDS: SODIUM CHLORIDE 0.9% 50 ML IVPB IV SCH (21:43)
[2021-01-16] MEDS: REMDESIVIR 100 MG in SODIUM CHLORIDE 0.9% 250ML 250 ML IV SCH (21:49)
[2021-01-16] MEDS ORDERED: oxyCODONE /ACETAMINOPHEN 5-325MG TAB PO ONE (22:00)
[2021-01-16] MEDS ORDERED: ALPRAZolam 0.5 MG TAB PO SCH (22:00)
[2021-01-16] MEDS: guaiFENesin 100 MG/5 ML ORAL LIQD PO PRN (23:30)
[2021-01-17] MEDS: ONDANSETRON 4 MG/2 ML INJ IV PRN (05:27)
[2021-01-17] MEDS: guaiFENesin 100 MG/5 ML ORAL LIQD PO PRN ×2 (05:27→20:49)
[2021-01-17] MEDS: ALPRAZolam 0.5 MG TAB PO PRN ×2 (05:30→20:48)
[2021-01-17 06:53] LABS: Alanine Aminotransferase 33 units/L (7-56); Albumin 3.6 g/dL (3.9-5); BUN/Creatinine Ratio 15; Blood Urea Nitrogen 12 mg/dL (7-17); Calcium 8.5 mg/dL (8.4-10.2); Hemolysis Index 1
[2021-01-17 06:54] LABS: C-Reactive Protein 11.8 mg/dL (0.00-1.30)
--- NOTE | 2021-01-17 07:44 | Progress Note ---
Assessment and Plan Assessment and plan: HPI: 33-year-old female past medical history of anxiety and cocaine use presenting to our facility with complaint of shortness of breath. Patient states that she has had a cough for approximately 1 week with associated pleuritic chest pain every time she coughs. Cough is associated with blood-tinged sputum. She was tested at the time for Covid and was found to be negative. She has received her first dose of the Pfizer Covid vaccine, but did not obtain second dose. She states that her symptoms worsened after yesterday she was smoking crack cocaine. She states that immediately after she became diaphoretic and short of breath. Hospital course to date 01/16/2021: Continues to require supplemental oxygen. Currently on 6 L/min. States that overall her symptoms have slightly improved. Subspecialist recommendations noted. We will continue supportive management, add diuretics, and add Xanax as needed for anxiety. 01/17/2021: Continues to require supplemental oyygen. 6l/min. Assessment and plan 1. acute hypoxic respiratory failure Etiology high suspicion for Covid pneumonia. "Crack lung" also on differential -Currently on 3 L nasal cannula, wean as tolerated As needed albuterol inhaler, budesonide -Chest x-ray demonstrates findings consistent with pulmonary edema CTA chest: Negative for PE, multifocal patchy groundglass opacities Pulmonology consulted 2. SARS-CoV-2 pneumonia Covid 19 RT-PCR positive Empiric antibiotic with azithromycin V/Rocephin IV, de-escalate if procalcitonin not elevated Decadron 10 mg IV daily Remdesivir x5 days ordered Lovenox 40 mg subcu daily Infectious disease consulted 3. Sepsis Leukocytosis, tachycardia, tachypnea Management as above Blood culture x2 ordered Sputum culture ordered 4. Transaminitis Mild elevation AST Monitor on hepatic panel 5. Hyponatremia Noted to be low Monitor on BMP 6. Hypokalemia Noted to be low on admission, replaced with K-Dur, scheduled Follow-up on a.m. BMP's 7. Drug abuse -Has been to drug rehab before Admitted to correct cocaine use just prior to admission and in the days leading up to admission UDS positive for amphetamines, THC, cocaine -Counseled on recreational drug abstinence and the detrimental effect of recreational drug use on health. 8. Nicotine abuse 1 pack/day smoking history since age 19 Counseled on smoking cessation, 10+ minutes Note: Patient has expressed that she does not want her medical information shared with any family members besides - Patient Problems (1) Hyponatremia Current Visit: Yes Status: Acute (2) Transaminitis Current Visit: Yes Status: Acute (3) Acute respiratory failure with hypoxia Current Visit: Yes Status: Acute (4) Cocaine abuse Current Visit: Yes Status: Acute (5) Hypokalemia Current Visit: Yes Status: Acute (6) Pneumonia Current Visit: Yes Status: Acute (7) Sepsis Current Visit: Yes Status: Acute (8) Suspected COVID-19 virus infection Current Visit: Yes Status: Acute History Interval history: Anxious overnight, was given xanax with good response. Patient still feels fatigue and chest congestion but overall feels better compared to yesterday. All questions and concerns answered to the patient satisfaction Hospitalist Physical - Physical exam Narrative exam: Physical Exam: Constitutional: Alert, cooperative. No acute distress, elevated BMI, drowsy Head, Ears, Nose: Normocephalic, atraumatic. External ears, nose normal Eyes: Conjunctivae/corneas clear. No icterus. No ptosis. Neck: Supple, no meningeal signs Oral: dentition fair, no thrush Cardiovascular: S1, S2 normal. Respiratory: Good air entry, clear to auscultation bilaterally GI: Soft, non-tender; bowel sounds normal. No peritoneal signs. Musculoskeletal: No pedal edema, no cyanosis. Skin: No rash or abscess, see nursing assessment for full skin exam Hem/Lymphatic: No palpable cervical or supraclavicular nodes. No lymphangitis Psych: Mood ok. Affect normal Neurological: Awake, alert, oriented. No gross abnormality - Constitutional Vitals: Temp Pulse Resp BP Pulse Ox 98.4 F 82 16 143/92 98 01/17/21 03:48 01/17/21 03:48 01/17/21 03:48 01/17/21 03:48 01/17/21 03:48 HEART Score - HEART Score Troponin: Troponin T < 0.010 ng/mL (0.00-0.029) 01/15/21 08:57 Results - Labs CBC & Chem 7: 01/16/21 07:40 01/17/21 05:01 Labs: Laboratory Last Values WBC 20.6 K/mm3 (4.5-11.0) H 01/16/21 07:40 RBC 4.38 M/mm3 (3.65-5.03) 01/16/21 07:40 Hgb 11.9 gm/dl (10.1-14.3) 01/16/21 07:40 Hct 36.6 % (30.3-42.9) 01/16/21 07:40 MCV 84 fl (79-97) 01/16/21 07:40 MCH 27 pg (28-32) L 01/16/21 07:40 MCHC 33 % (30-34) 01/16/21 07:40 RDW 17.3 % (13.2-15.2) H 01/16/21 07:40 Plt Count 325 K/mm3 (140-440) 01/16/21 07:40 Lymph % (Auto) 5.0 % (13.4-35.0) L 01/15/21 08:57 [place] % (Auto) 4.9 % (0.0-7.3) 01/15/21 08:57 Eos % (Auto) 0.0 % (0.0-4.3) 01/15/21 08:57 Baso % (Auto) 0.2 % (0.0-1.8) 01/15/21 08:57 Lymph # (Auto) 1.0 K/mm3 (1.2-5.4) L 01/15/21 08:57 [place] # (Auto) 0.9 K/mm3 (0.0-0.8) H 01/15/21 08:57 Eos # (Auto) 0.0 K/mm3 (0.0-0.4) 01/15/21 08:57 Baso # (Auto) 0.0 K/mm3 (0.0-0.1) 01/15/21 08:57 Add Manual Diff Complete 01/16/21 07:40 Total Counted 100 01/16/21 07:40 Seg Neutrophils % 89.9 % (40.0-70.0) H 01/15/21 08:57 Seg Neuts % (Manual) 44.0 % (40.0-70.0) 01/16/21 07:40 Band Neutrophils % 3.0 % 01/16/21 07:40 Lymphocytes % (Manual) 50.0 % (13.4-35.0) H 01/16/21 07:40 Monocytes % (Manual) 3.0 % (0.0-7.3) 01/16/21 07:40 Nucleated RBC % Not Reportable 01/16/21 07:40 Seg Neutrophils # 17.4 K/mm3 (1.8-7.7) H 01/15/21 08:57 Seg Neutrophils # Man 9.1 K/mm3 (1.8-7.7) H 01/16/21 07:40 Band Neutrophils # 0.6 K/mm3 01/16/21 07:40 Lymphocytes # (Manual) 10.3 K/mm3 (1.2-5.4) H 01/16/21 07:40 Abs React Lymphs (Man) 0.0 K/mm3 01/16/21 07:40 Monocytes # (Manual) 0.6 K/mm3 (0.0-0.8) 01/16/21 07:40 Eosinophils # (Manual) 0.0 K/mm3 (0.0-0.4) 01/16/21 07:40 Basophils # (Manual) 0.0 K/mm3 (0.0-0.1) 01/16/21 07:40 Metamyelocytes # 0.0 K/mm3 01/16/21 07:40 Myelocytes # 0.0 K/mm3 01/16/21 07:40 Promyelocytes # 0.0 K/mm3 01/16/21 07:40 Blast Cells # 0.0 K/mm3 01/16/21 07:40 WBC Morphology Not Reportable 01/16/21 07:40 Hypersegmented Neuts Not Reportable 01/16/21 07:40 Hyposegmented Neuts Not Reportable 01/16/21 07:40 Hypogranular Neuts Not Reportable 01/16/21 07:40 Smudge Cells Not Reportable 01/16/21 07:40 Toxic Granulation Not Reportable 01/16/21 07:40 Toxic Vacuolation Not Reportable 01/16/21 07:40 Dohle Bodies Not Reportable 01/16/21 07:40 Pelger-Huet Anomaly Not Reportable 01/16/21 07:40 Roxie Rods Not Reportable 01/16/21 07:40 Platelet Estimate Consistent w auto 01/16/21 07:40 Clumped Platelets Not Reportable 01/16/21 07:40 Plt Clumps, EDTA Not Reportable 01/16/21 07:40 Large Platelets 2+ 01/16/21 07:40 Giant Platelets Not Reportable 01/16/21 07:40 Platelet Satelliting Not Reportable 01/16/21 07:40 Plt Morphology Comment Not Reportable 01/16/21 07:40 RBC Morphology Not Reportable 01/16/21 07:40 Dimorphic RBCs Not Reportable 01/16/21 07:40 Polychromasia Not Reportable 01/16/21 07:40 Hypochromasia Not Reportable 01/16/21 07:40 Poikilocytosis Not Reportable 01/16/21 07:40 Anisocytosis Not Reportable 01/16/21 07:40 Microcytosis Not Reportable 01/16/21 07:40 Macrocytosis Not Reportable 01/16/21 07:40 Spherocytes Not Reportable 01/16/21 07:40 Pappenheimer Bodies Not Reportable 01/16/21 07:40 Sickle Cells Not Reportable 01/16/21 07:40 Target Cells Not Reportable 01/16/21 07:40 Tear Drop Cells Not Reportable 01/16/21 07:40 Ovalocytes Not Reportable 01/16/21 07:40 Helmet Cells Not Reportable 01/16/21 07:40 [place] Bodies Not Reportable 01/16/21 07:40 [place] Rings Not Reportable 01/16/21 07:40 Karis Cells Not Reportable 01/16/21 07:40 Bite Cells Not Reportable 01/16/21 07:40 Crenated Cell Not Reportable 01/16/21 07:40 Elliptocytes Not Reportable 01/16/21 07:40 Acanthocytes (Spur) Not Reportable 01/16/21 07:40 Rouleaux Not Reportable 01/16/21 07:40 Hemoglobin C Crystals Not Reportable 01/16/21 07:40 Schistocytes Not Reportable 01/16/21 07:40 Malaria parasites Not Reportable 01/16/21 07:40 Benigno Bodies Not Reportable 01/16/21 07:40 Hem Pathologist Commnt No 01/16/21 07:40 PT 14.0 Sec. (12.2-14.9) 01/15/21 08:57 INR 1.03 (0.87-1.13) 01/15/21 08:57 APTT 30.6 Sec. (24.2-36.6) 01/15/21 08:57 D-Dimer 495.64 ng/mlDDU (0-234) H 01/17/21 05:01 Sodium 136 mmol/L (137-145) L 01/17/21 05:01 Potassium 3.3 mmol/L (3.6-5.0) L 01/17/21 05:01 Chloride 97.3 mmol/L (98-107) L 01/17/21 05:01 Carbon Dioxide 25 mmol/L (22-30) 01/17/21 05:01 Anion Gap 17 mmol/L 01/17/21 05:01 BUN 12 mg/dL (7-17) 01/17/21 05:01 Creatinine 0.8 mg/dL (0.6-1.2) 01/17/21 05:01 Estimated GFR > 60 ml/min 01/17/21 05:01 BUN/Creatinine Ratio 15 % 01/17/21 05:01 Glucose 120 mg/dL (65-100) H 01/17/21 05:01 Lactic Acid 2.00 mmol/L (0.7-2.0) 01/15/21 10:12 Calcium 8.5 mg/dL (8.4-10.2) 01/17/21 05:01 Ferritin 181.1 ng/mL (10.0-200.0) 01/17/21 05:01 Total Bilirubin 0.20 mg/dL (0.1-1.2) 01/17/21 05:01 Direct Bilirubin < 0.2 mg/dL (0-0.2) 01/15/21 08:57 Indirect Bilirubin 0.3 mg/dL 01/15/21 08:57 AST 26 units/L (5-40) 01/17/21 05:01 ALT 33 units/L (7-56) 01/17/21 05:01 Alkaline Phosphatase 83 units/L (35-129) 01/17/21 05:01 Lactate Dehydrogenase 545 units/L (91-180) H 01/17/21 05:01 Troponin T < 0.010 ng/mL (0.00-0.029) 01/15/21 08:57 C-Reactive Protein 11.80 mg/dL (0.00-1.30) H 01/17/21 05:01 NT-Pro-B Natriuret Pep 52.39 pg/mL (0-450) 01/15/21 08:57 Total Protein 7.7 g/dL (6.3-8.2) 01/17/21 05:01 Albumin 3.6 g/dL (3.9-5) L 01/17/21 05:01 Albumin/Globulin Ratio 0.9 % 01/17/21 05:01 Procalcitonin 1.67 ng/mL (<0.15) 01/15/21 10:12 HCG, Qual Negative (Negative) 01/15/21 08:57 Urine Color Straw (Yellow) 01/15/21 Unknown Urine Turbidity Clear (Clear) 01/15/21 Unknown Urine pH 6.0 (5.0-7.0) 01/15/21 Unknown Ur Specific [place] 1.004 (1.003-1.030) 01/15/21 Unknown Urine Protein <15 mg/dl mg/dL (Negative) 01/15/21 Unknown Urine Glucose (UA) Neg mg/dL (Negative) 01/15/21 Unknown Urine Ketones Neg mg/dL (Negative) 01/15/21 Unknown Urine Blood Sm (Negative) 01/15/21 Unknown Urine Nitrite Neg (Negative) 01/15/21 Unknown Urine Bilirubin Neg (Negative) 01/15/21 Unknown Urine Urobilinogen < 2.0 mg/dL (<2.0) 01/15/21 Unknown Ur Leukocyte Esterase Neg (Negative) 01/15/21 Unknown Urine WBC (Auto) < 1.0 /HPF (0.0-6.0) 01/15/21 Unknown Urine RBC (Auto) 2.0 /HPF (0.0-6.0) 01/15/21 Unknown U Epithel Cells (Auto) 2.0 /HPF (0-13.0) 01/15/21 Unknown Urine Opiates Screen Negative 01/15/21 Unknown Urine Methadone Screen Negative 01/15/21 Unknown Ur Barbiturates Screen Negative 01/15/21 Unknown Ur Phencyclidine Scrn Negative 01/15/21 Unknown Ur Amphetamines Screen Positive 01/15/21 Unknown U Benzodiazepines Scrn Negative 01/15/21 Unknown Urine Cocaine Screen Positive 01/15/21 Unknown U Marijuana (THC) Screen Positive 01/15/21 Unknown Drugs of Abuse Note Disclamer 01/15/21 Unknown Plasma/Serum Alcohol < 0.01 % (0-0.07) 01/15/21 08:57 Coronavirus (PCR) Positive (Negative) A 01/15/21 08:50 Microbiology: Microbiology 01/15/21 10:12 Peripheral/Venous Blood Culture - Preliminary NO GROWTH AFTER 24 HOURS 01/15/21 10:12 Peripheral/Venous Blood Culture - Preliminary NO GROWTH AFTER 24 HOURS Cleary/IV: Voiding Method Toilet Active Medications - Current Medications Current Medications: Generic Name Dose Route Start Last Admin Trade Name Freq PRN Reason Stop Dose Admin Acetaminophen 650 mg 01/15/21 11:42 01/15/21 12:35 Acetaminophen 325 Mg Tab PO 650 mg Q4H PRN Administration Pain MILD(1-3)/Fever >100.5/LEUNG Alprazolam 0.5 mg 01/16/21 15:00 01/17/21 05:30 Alprazolam 0.5 Mg Tab PO 0.5 mg Q12HR PRN Administration Anxiety Dexamethasone 10 mg 01/16/21 10:00 01/16/21 11:56 Dexamethasone 20 Mg/5 Ml Vial IV 01/26/21 09:59 10 mg DAILY RODNEY Administration Enoxaparin Sodium 40 mg 01/15/21 12:00 01/16/21 10:07 Enoxaparin 40 Mg/0.4 Ml Inj SUB-Q 40 mg QDAY RODNEY Administration Guaifenesin 100 mg 01/16/21 00:00 01/17/21 05:27 Guaifenesin 100 Mg/5 Ml Oral Liqd PO 100 mg Q4H PRN Administration Cough Azithromycin 500 mg in 250 mls @ 250 mls/hr 01/16/21 10:00 01/16/21 19:23 Zithromax/Ns IV 01/17/21 11:59 Infused Q24HR RODNEY Infusion REMDESIVIR 100 mg/ Sodium 250 mls @ 500 mls/hr 01/16/21 21:00 01/16/21 23:26 Chloride IV 01/19/21 21:29 Infused Q24HR@2100 RODNEY Infusion Ceftriaxone Sodium 2 gm in 100 mls @ 200 mls/hr 01/16/21 10:00 01/16/21 19:23 Rocephin/Ns 2 Gm/100 Ml IV 01/19/21 10:29 Infused Q24HR RODNEY Infusion Ondansetron HCl 4 mg 01/15/21 11:42 01/17/21 05:27 Ondansetron 4 Mg/2 Ml Inj IV 4 mg Q8H PRN Administration Nausea And Vomiting Potassium Chloride 40 meq 01/16/21 10:00 01/16/21 10:07 Potassium Chloride Er 20 Meq Tab PO 40 meq QDAY RODNEY Administration Sodium Chloride 10 ml 01/15/21 22:00 01/16/21 21:42 Sodium Chloride 0.9% 10 Ml Flush Syringe IV 10 ml BID RODNEY Administration Sodium Chloride 10 ml 01/15/21 11:42 Sodium Chloride 0.9% 10 Ml Flush Syringe IV PRN PRN LINE FLUSH Sodium Chloride 50 ml 01/15/21 21:00 01/16/21 21:43 Sodium Chloride 0.9% 50 Ml Ivpb IV 01/19/21 21:01 50 ml Q24HR@2100 RODNEY Administration
[2021-01-17] MEDS: ENOXAPARIN 40 MG/0.4 ML INJ SUB-Q SCH (09:48)
[2021-01-17] MEDS: dexAMETHasone 20 MG/5 ML VIAL IV SCH (09:48)
[2021-01-17] MEDS: POTASSIUM CHLORIDE ER 20 MEQ TAB PO SCH (09:49)
[2021-01-17] MEDS: cefTRIAXone/NS 2 GM/100 ML 2 GM/100 ML BAG IV SCH (09:49)
[2021-01-17] MEDS: AZITHROMYCIN/NS 500 MG/250 ML 500 MG/250 ML BAG IV SCH (09:50)
--- NOTE | 2021-01-17 11:58 | Progress Note ---
Assessment and Plan Benzos regularly for anxiety and cocaine withdrawal Steroids Proning Will give a one time dose of lasix today. Subjective Date of service: 01/17/21 Interval history: Still on 6 but good sats. Objective Vital Signs - 12hr 01/17/21 03:48 Temperature 98.4 F Pulse Rate 82 Respiratory 16 Rate Blood Pressure 143/92 O2 Sat by Pulse 98 Oximetry CBC and BMP: 01/16/21 07:40 01/17/21 05:01 ABG, PT/INR, D-dimer: PT/INR, D-dimer PT 14.0 Sec. (12.2-14.9) 01/15/21 08:57 INR 1.03 (0.87-1.13) 01/15/21 08:57 D-Dimer 495.64 ng/mlDDU (0-234) H 01/17/21 05:01 Abnormal lab findings: Abnormal Labs 01/15/21 01/15/21 01/15/21 08:50 08:57 08:57 WBC 19.3 H RBC 5.05 H MCH 27 L RDW 17.1 H Lymph % (Auto) 5.0 L Lymph # (Auto) 1.0 L [place] # (Auto) 0.9 H Seg Neutrophils % 89.9 H Lymphocytes % (Manual) Seg Neutrophils # 17.4 H Seg Neutrophils # Man Lymphocytes # (Manual) D-Dimer 1434.01 H Sodium Potassium Chloride BUN Glucose AST Lactate Dehydrogenase C-Reactive Protein Total Protein Albumin Coronavirus (PCR) Positive A 01/15/21 01/15/21 01/15/21 08:57 08:57 15:31 WBC RBC MCH RDW Lymph % (Auto) Lymph # (Auto) [place] # (Auto) Seg Neutrophils % Lymphocytes % (Manual) Seg Neutrophils # Seg Neutrophils # Man Lymphocytes # (Manual) D-Dimer Sodium 132 L 132 L Potassium 3.0 L Chloride 95.0 L 96.0 L BUN 6 L Glucose 135 H 144 H AST 57 H 48 H Lactate Dehydrogenase 767 H C-Reactive Protein 14.40 H Total Protein 8.4 H Albumin 3.8 L 3.7 L Coronavirus (PCR) 01/16/21 01/16/21 01/17/21 07:06 07:40 05:01 WBC 20.6 H RBC MCH 27 L RDW 17.3 H Lymph % (Auto) Lymph # (Auto) [place] # (Auto) Seg Neutrophils % Lymphocytes % (Manual) 50.0 H Seg Neutrophils # Seg Neutrophils # Man 9.1 H Lymphocytes # (Manual) 10.3 H D-Dimer Sodium 134 L 136 L Potassium 3.2 L 3.3 L Chloride 97.0 L 97.3 L BUN Glucose 139 H 120 H AST Lactate Dehydrogenase C-Reactive Protein Total Protein Albumin 3.4 L 3.6 L Coronavirus (PCR) 01/17/21 01/17/21 05:01 05:01 WBC RBC MCH RDW Lymph % (Auto) Lymph # (Auto) [place] # (Auto) Seg Neutrophils % Lymphocytes % (Manual) Seg Neutrophils # Seg Neutrophils # Man Lymphocytes # (Manual) D-Dimer 495.64 H Sodium Potassium Chloride BUN Glucose AST Lactate Dehydrogenase 545 H C-Reactive Protein 11.80 H Total Protein Albumin Coronavirus (PCR)
--- NOTE | 2021-01-17 13:07 | Progress Note ---
Assessment and Plan Cultures: Blood culture no growth SARS CoV2 PCR positive Assessment: 30-year-old female with history of left-sided pain, polysubstance abuse, anxiety, admitted on 01/15/2021 secondary to a 1-week history of generalized malaise, cough, pleuritic chest pain and shortness of breath: #Sepsis: Present on admission, hypoxia, leukocytosis; likely secondary to bilateral pneumonia from COVID-19. Urinalysis negative. #Severe COVID pneumonia +/- bacterial pneumonia: CTA chest shows extensive confluent perihilar groundglass opacities. Infllammatory markers elevated. D- dimer 1434. CRP 14. Ferritin 167. Elevated procalcitonin 1.6. #Acute hypoxemic respiratory failure: on 6 L nasal cannula. #Elevated LFTs: from COVID and ?substance abuse. #Cocaine, meth, marijuana use Recommendations: -Continue dexamethasone IV/PO daily for 10 days -Continue remdesivir for 5 days (CrCl>30 mg/mL) -Continue ceftriaxone for 5 days, completed azithromycin -Monitor inflammatory markers - ferritin, Ddimer, CRP, LDH -Continue anticoagulation per System Protocol Yani Smith MD, FACP [facility], [place] O: [phone] F: [phone] Subjective Date of service: 01/17/21 Interval history: Afebrile. On oxygen by nasal cannula, 6 L. Objective - Exam Narrative Exam: Physical Exam (reviewed in chart to minimize risk of transmission) Constitutional: deferred Head, Ears, Nose: deferred Eyes: deferred Neck: deferred Oral: deferred Cardiovascular: deferred Respiratory: deferred GI: deferred Musculoskeletal: deferred Skin: deferred Hem/Lymphatic: deferred Psych: deferred Neurological: deferred - Constitutional Vitals: Vital Signs Temp Pulse Resp BP Pulse Ox 98.4 F 82 16 143/92 97 01/17/21 03:48 01/17/21 03:48 01/17/21 03:48 01/17/21 03:48 01/17/21 10:00 Temperature -Last 24 Hours Temperature 98.4 F Temperature 99.9 F - Labs CBC & Chem 7: 01/16/21 07:40 01/17/21 05:01 Labs: Abnormal lab results 01/17/21 01/17/21 01/17/21 Range/Units 05:01 05:01 05:01 D-Dimer 495.64 H (0-234) ng/mlDDU Sodium 136 L (137-145) mmol/L Potassium 3.3 L (3.6-5.0) mmol/L Chloride 97.3 L (98-107) mmol/L Glucose 120 H (65-100) mg/dL Lactate Dehydrogenase 545 H (91-180) units/L C-Reactive Protein 11.80 H (0.00-1.30) mg/dL Albumin 3.6 L (3.9-5) g/dL
[2021-01-17] MEDS: ACETAMINOPHEN 325 MG TAB PO PRN (20:46)
[2021-01-17] MEDS: REMDESIVIR 100 MG in SODIUM CHLORIDE 0.9% 250ML 250 ML IV SCH (21:57)
[2021-01-17] MEDS: SODIUM CHLORIDE 0.9% 50 ML IVPB IV SCH (21:57)
[2021-01-18] MEDS: guaiFENesin 100 MG/5 ML ORAL LIQD PO PRN (03:30)
[2021-01-18 07:59] LABS: Alanine Aminotransferase 26 units/L (7-56); Albumin 3.4 g/dL (3.9-5); BUN/Creatinine Ratio 14; Blood Urea Nitrogen 11 mg/dL (7-17); Calcium 8.6 mg/dL (8.4-10.2); Hemolysis Index 7
[2021-01-18] MEDS: ACETAMINOPHEN 325 MG TAB PO PRN (10:04)
[2021-01-18] MEDS: cefTRIAXone/NS 2 GM/100 ML 2 GM/100 ML BAG IV SCH (10:04)
[2021-01-18] MEDS: dexAMETHasone 20 MG/5 ML VIAL IV SCH (10:06)
[2021-01-18] MEDS: POTASSIUM CHLORIDE ER 20 MEQ TAB PO SCH (10:06)
[2021-01-18] MEDS: ENOXAPARIN 40 MG/0.4 ML INJ SUB-Q SCH (10:06)
--- NOTE | 2021-01-18 11:30 | Progress Note ---
Assessment and Plan 01/18/21: Suggest more proning. Moises give another dose of lasix today. Given patient size, substance abuse on top of underlying anxiety, will likely need either larger doses of xanax or ativan. Benzos regularly for anxiety and cocaine withdrawal Steroids Proning Will give a one time dose of lasix today. Subjective Date of service: 01/18/21 Interval history: Down to 5 liters NC. Good sats. Objective Vital Signs - 12hr 01/18/21 01/18/21 00:00 05:12 Temperature 98.7 F Pulse Rate 69 Respiratory 22 Rate Blood Pressure 141/93 O2 Sat by Pulse 97 100 Oximetry CBC and BMP: 01/16/21 07:40 01/18/21 06:39 ABG, PT/INR, D-dimer: PT/INR, D-dimer PT 14.0 Sec. (12.2-14.9) 01/15/21 08:57 INR 1.03 (0.87-1.13) 01/15/21 08:57 D-Dimer 495.64 ng/mlDDU (0-234) H 01/17/21 05:01 Abnormal lab findings: Abnormal Labs 01/15/21 01/15/21 01/15/21 08:50 08:57 08:57 WBC 19.3 H RBC 5.05 H MCH 27 L RDW 17.1 H Lymph % (Auto) 5.0 L Lymph # (Auto) 1.0 L [place] # (Auto) 0.9 H Seg Neutrophils % 89.9 H Lymphocytes % (Manual) Seg Neutrophils # 17.4 H Seg Neutrophils # Man Lymphocytes # (Manual) D-Dimer 1434.01 H Sodium Potassium Chloride BUN Glucose AST Lactate Dehydrogenase C-Reactive Protein Total Protein Albumin Coronavirus (PCR) Positive A 01/15/21 01/15/21 01/15/21 08:57 08:57 15:31 WBC RBC MCH RDW Lymph % (Auto) Lymph # (Auto) [place] # (Auto) Seg Neutrophils % Lymphocytes % (Manual) Seg Neutrophils # Seg Neutrophils # Man Lymphocytes # (Manual) D-Dimer Sodium 132 L 132 L Potassium 3.0 L Chloride 95.0 L 96.0 L BUN 6 L Glucose 135 H 144 H AST 57 H 48 H Lactate Dehydrogenase 767 H C-Reactive Protein 14.40 H Total Protein 8.4 H Albumin 3.8 L 3.7 L Coronavirus (PCR) 01/16/21 01/16/21 01/17/21 07:06 07:40 05:01 WBC 20.6 H RBC MCH 27 L RDW 17.3 H Lymph % (Auto) Lymph # (Auto) [place] # (Auto) Seg Neutrophils % Lymphocytes % (Manual) 50.0 H Seg Neutrophils # Seg Neutrophils # Man 9.1 H Lymphocytes # (Manual) 10.3 H D-Dimer Sodium 134 L 136 L Potassium 3.2 L 3.3 L Chloride 97.0 L 97.3 L BUN Glucose 139 H 120 H AST Lactate Dehydrogenase C-Reactive Protein Total Protein Albumin 3.4 L 3.6 L Coronavirus (PCR) 01/17/21 01/17/21 01/18/21 05:01 05:01 06:39 WBC RBC MCH RDW Lymph % (Auto) Lymph # (Auto) [place] # (Auto) Seg Neutrophils % Lymphocytes % (Manual) Seg Neutrophils # Seg Neutrophils # Man Lymphocytes # (Manual) D-Dimer 495.64 H Sodium 136 L Potassium 3.5 L Chloride BUN Glucose 118 H AST Lactate Dehydrogenase 545 H C-Reactive Protein 11.80 H Total Protein Albumin 3.4 L Coronavirus (PCR)
--- NOTE | 2021-01-18 12:06 | Progress Note ---
Assessment and Plan Cultures: Blood culture no growth SARS CoV2 PCR positive Assessment: 30-year-old female with history of left-sided pain, polysubstance abuse, anxiety, admitted on 01/15/2021 secondary to a 1-week history of generalized malaise, cough, pleuritic chest pain and shortness of breath: #Sepsis: Present on admission, hypoxia, leukocytosis; likely secondary to bilateral pneumonia from COVID-19. Urinalysis negative. #Severe COVID pneumonia +/- bacterial pneumonia: CTA chest shows extensive confluent perihilar groundglass opacities. Infllammatory markers elevated. D- dimer 1434. CRP 14. Ferritin 167. Elevated procalcitonin 1.6. #Acute hypoxemic respiratory failure: on 6 L nasal cannula. #Elevated LFTs: from COVID and ?substance abuse. #Cocaine, meth, marijuana use Recommendations: -Continue dexamethasone IV/PO daily for 10 days -Continue remdesivir for 5 days (CrCl>30 mg/mL) -Continue ceftriaxone for 5 days, completed azithromycin -Monitor inflammatory markers - ferritin, Ddimer, CRP, LDH -Continue anticoagulation per System Protocol -oxygen weaning and ambulatory sats prior to discharge ID will sign off. Please reconsult as needed. Yani Smith MD, FACP [facility] ([facility] O: [phone] F: [phone] Subjective Date of service: 01/18/21 Interval history: No fever. Remains on oxygen by nasal cannula, down to 5 lit/min Objective - Exam Narrative Exam: Physical Exam (reviewed in chart to minimize risk of transmission) Constitutional: deferred Head, Ears, Nose: deferred Eyes: deferred Neck: deferred Oral: deferred Cardiovascular: deferred Respiratory: deferred GI: deferred Musculoskeletal: deferred Skin: deferred Hem/Lymphatic: deferred Psych: deferred Neurological: deferred - Constitutional Vitals: Vital Signs Temp Pulse Resp BP Pulse Ox 98.7 F 69 22 141/93 100 01/18/21 05:12 01/18/21 05:12 01/18/21 05:12 01/18/21 05:12 01/18/21 05:12 Temperature -Last 24 Hours Temperature 98.7 F Temperature 98.6 F - Labs CBC & Chem 7: 01/16/21 07:40 01/18/21 06:39 Labs: Abnormal lab results 01/18/21 Range/Units 06:39 Sodium 136 L (137-145) mmol/L Potassium 3.5 L (3.6-5.0) mmol/L Glucose 118 H (65-100) mg/dL Albumin 3.4 L (3.9-5) g/dL
[2021-01-18] MEDS ORDERED: FUROSEMIDE 20 MG/2 ML INJ IV ONE (12:33)
--- NOTE | 2021-01-18 15:12 | Discharge Summary ---
Providers - Providers Date of Admission: 01/15/21 10:28 Date of discharge: 01/18/21 Attending physician: SEBASTIÁN VIGIL MD 01/15/21 11:48 Consult to Physician [CONS] Routine Comment: Consulting Provider: JAYRO GORDON Physician Instructions: Reason For Exam: covid pui 01/15/21 15:42 Consult to Physician [CONS] Routine Comment: Consulting Provider: JUAN CLADERA Physician Instructions: Reason For Exam: covid 19, multifocal pna 01/18/21 09:50 Consult to Case Management [CONS] Routine Services Needed at Discharge: Home O2 Notified:: cm notified Primary care physician: DEMAND MANAGER Hospitalization Reason for admission: shortness of breath Condition: Fair Hospital course: HPI: 33-year-old female past medical history of anxiety and cocaine use presenting to our facility with complaint of shortness of breath. Patient states that she has had a cough for approximately 1 week with associated pleuritic chest pain every time she coughs. Cough is associated with blood-tinged sputum. She was tested at the time for Covid and was found to be negative. She has received her first dose of the [employer] Covid vaccine, but did not obtain second dose. She states that her symptoms worsened after yesterday she was smoking crack cocaine. She states that immediately after she became diaphoretic and short of breath. Hospital course to date 01/16/2021: Continues to require supplemental oxygen. Currently on 6 L/min. States that overall her symptoms have slightly improved. Subspecialist recommendations noted. We will continue supportive management, add diuretics, and add Xanax as needed for anxiety. 01/17/2021: Continues to require supplemental oyygen. 6l/min. 01/18/2021: Sympatomatically improved. O2 titrated down to 3L/min. sats in mid 90's. Based on walking O2 test, will d/c home with home O2. discussed with CM who will work with to find a supplier. Discharge home with remainder decadron steroid course (7 days), robutussin as needed for cough, mirtazapine for anxiety, and potassium supplement for 5 days. Assessment and plan 1. acute hypoxic respiratory failure Etiology high suspicion for Covid pneumonia. "Crack lung" also on differential -Currently on 3 L nasal cannula, wean as tolerated As needed albuterol inhaler, budesonide -Chest x-ray demonstrates findings consistent with pulmonary edema CTA chest: Negative for PE, multifocal patchy groundglass opacities Pulmonology consulted 2. SARS-CoV-2 pneumonia Covid 19 RT-PCR positive Empiric antibiotic with azithromycin V/Rocephin IV, de-escalate if procalcitonin not elevated Decadron 10 mg IV daily Remdesivir x5 days ordered Lovenox 40 mg subcu daily Infectious disease consulted 3. Sepsis Leukocytosis, tachycardia, tachypnea Management as above Blood culture x2 ordered Sputum culture ordered 4. Transaminitis Mild elevation AST Monitor on hepatic panel 5. Hyponatremia Noted to be low Monitor on BMP 6. Hypokalemia Noted to be low on admission, replaced with K-Dur, scheduled Follow-up on a.m. BMP's 7. Drug abuse -Has been to drug rehab before Admitted to correct cocaine use just prior to admission and in the days leading up to admission UDS positive for amphetamines, THC, cocaine -Counseled on recreational drug abstinence and the detrimental effect of recreational drug use on health. 8. Nicotine abuse 1 pack/day smoking history since age 19 Counseled on smoking cessation, 10+ minutes Disposition: 01 HOME / SELF CARE / HOMELESS Final Discharge Diagnosis (Prints w/discharge instructions): COVID pneumonia Time spent for discharge: 35 - Discharge Diagnoses (1) Hyponatremia Status: Acute (2) Transaminitis Status: Acute (3) Acute respiratory failure with hypoxia Status: Acute (4) Cocaine abuse Status: Acute (5) Hypokalemia Status: Acute (6) Pneumonia Status: Acute (7) Sepsis Status: Acute (8) Suspected COVID-19 virus infection Status: Acute Core Measure Documentation - Palliative Care Palliative Care/ Comfort Measures: Not Applicable - Core Measures Any of the following diagnoses?: none Exam - Physical Exam Narrative exam: Physical Exam: Constitutional: Alert, cooperative. No acute distress, elevated BMI Head, Ears, Nose: Normocephalic, atraumatic. External ears, nose normal Eyes: Conjunctivae/corneas clear. No icterus. No ptosis. Neck: Supple, no meningeal signs Oral: dentition fair, no thrush Cardiovascular: S1, S2 normal. Respiratory: Good air entry, ronchi bilaterally, on NC 3L/min. GI: Soft, non-tender; bowel sounds normal. No peritoneal signs. Musculoskeletal: No pedal edema, no cyanosis. Skin: No rash or abscess, see nursing assessment for full skin exam Hem/Lymphatic: No palpable cervical or supraclavicular nodes. No lymphangitis Psych: Mood ok. Affect normal Neurological: Awake, alert, oriented. No gross abnormality - Constitutional Vitals: Temp Pulse Resp BP Pulse Ox 98.6 F 74 22 97/58 96 01/18/21 11:13 01/18/21 11:13 01/18/21 11:13 01/18/21 11:13 01/18/21 12:06 Plan Activity: advance as tolerated Weight Bearing Status: Weight Bear as Tolerated Diet: low fat, low cholesterol, low salt Durable Medical Equipment Needed Upon Discharge: Oxygen Follow up with: PRIMARY CARE, [Primary Care Provider] - 7 Days Prescriptions: Mirtazapine [Remeron] 15 mg PO QHS 30 Days #30 tablet Dexamethasone [Decadron] 6 mg PO DAILY 7 Days #7 tablet Potassium Chloride [K-Dur] 40 meq PO QDAY 5 Days #5 tablet guaiFENesin [Robitussin] 100 mg PO Q4H PRN 30 Days #1 bottle PRN Reason: Cough
[2021-01-18 17:45] VITALS: BP 119/79
== END 2021-01-18 19:00 | disposition left against medical advice (07) | DRG 871 ==
LOC: ED 07:29 → EEVIPCON 10:28 → 3A 10:28
PROVIDERS: ADMIT Internal Medicine; ATTEND Internal Medicine
PROC: XW033E5 Introduction of Remdesivir Anti-infective into Peripheral Vein, Percutaneous Approach, New Technology Group 5 (ICD-10-PCS; principal; 2021-01-15)
DX: A41.89 Other specified sepsis (principal); J96.01 Acute respiratory failure with hypoxia; U07.1 COVID-19; J12.82 Pneumonia due to coronavirus disease 2019; E87.1 Hypo-osmolality and hyponatremia; F14.10 Cocaine abuse, uncomplicated; Z53.29 Procedure and treatment not carried out because of patient's decision for other reasons; E87.6 Hypokalemia; F15.10 Other stimulant abuse, uncomplicated; F17.210 Nicotine dependence, cigarettes, uncomplicated; F41.9 Anxiety disorder, unspecified; Z71.6 Tobacco abuse counseling; F12.10 Cannabis abuse, uncomplicated; R74.01 Elevation of levels of liver transaminase levels
CPT/HCPCS: 36415; 71045; 71275; 80048; 80053; 80076; 80307; 80320; 81001; 82140; 82728; 83615; 83880; 84145; 84484; 84703; 85007; 85025; 85379; 85610; 85730; 86140; 87040; 93005; 94760; G0378; G0480; J0456; J0696; J1100; J1650; J1940; J2060; J2405; J7050; J8540; Q9967; U0003